=== PATIENT | male | born 2005 | race Caucasian/White ===

== ENCOUNTER 2025-01-25 10:27 | Emergency (ER) | payer BC ==
[~2025-01-25] VITALS: Ht 177.8 cm; Wt 90.7 kg
[2025-01-25 10:34] VITALS: TEMP 98.3
[2025-01-25] MEDS ORDERED: CYCL5TAB PO (11:41)
[2025-01-25] MEDS ORDERED: LIDO30AD10 TP (11:41)
[2025-01-25] MEDS ORDERED: IBUP-1955 PO (11:41)
[2025-01-25 11:46] VITALS: BP 128/77; O2SAT 99
== END 2025-01-25 11:47 | disposition home or self-care (01) ==
LOC: ER 10:37
DX: S76.012A Strain of muscle, fascia and tendon of left hip, initial encounter (principal); M54.50 Low back pain, unspecified; Z79.899 Other long term (current) drug therapy; V49.40XA Driver injured in collision with unspecified motor vehicles in traffic accident, initial encounter; Y93.89 Activity, other specified; Y92.89 Other specified places as the place of occurrence of the external cause; Y99.8 Other external cause status
CPT/HCPCS: 72110-TC; 73502